=== PATIENT | female | born 1960 | race Caucasian/White ===

== ENCOUNTER → 2016-09-28 | Outpatient (CLI) | payer OTHER ==
--- NOTE | 2016-09-28 15:00 | DI ---
RIGHT ELBOW, 09/28/2016 1:55 PM: Clinical History: Right elbow pain. Previous Exam: None at this facility. AP and lateral views are submitted. There is no acute soft tissue, osseous, or joint abnormality. The re is a bony spur at the tip of the olecranon at the insertion of the triceps tendon. Reading: Normal Limited right elbow exam.
--- NOTE | 2016-09-28 15:04 | DI ---
RIGHT FOREARM, 09/28/2016 1:59 PM: Clinical History: Right forearm pain. Previous Exam: None at this facility. AP and lateral views are submitted. There is no acute soft tissue, osseous, or joint abnormality. On the AP projection, the distance between the scaphoid and lunate bones is increased and a tear of the scapholunate ligament cannot be excluded. Readin. Normal right forearm exam. 2. There is widening of the distance between the scaphoid and lunate bones, suggesting a tear of the scapholunate ligament.
== END ==
LOC: MOB RAD 14:02
PROVIDERS: ATTEND Family Medicine
DX: M25.521 Pain in right elbow (principal); M79.631 Pain in right forearm; Z72.0 Tobacco use; X50.3XXA Overexertion from repetitive movements, initial encounter; Y93.H2 Activity, gardening and landscaping; Y92.89 Other specified places as the place of occurrence of the external cause
CPT/HCPCS: 73070; 73090